=== PATIENT | male | born 1990 | race Asian ===

== ENCOUNTER 2022-05-31 20:01 | Emergency (ER) | payer SELFPAY ==
[~2022-05-31] VITALS: Ht 177.8 cm; Wt 81.2 kg
[2022-05-31 20:09] VITALS: BP_SYST 148
--- NOTE | 2022-05-31 20:20 | NUR ---
Patient triaged and placed in waiting room. VSS and patient appears in no acute distress at this time. Accompanied by MOTHER, awaiting available bed, and MD notified of need for MSE.
--- NOTE | 2022-05-31 23:30 | NUR ---
first contactwith pt. assessment completed. awaiting additional eval and orders.
[2022-05-31 23:35] LABS: BASOPHILS % (AUTO) 0.5 % (0.0-2.0); EOSINOPHILS # (AUTO) 0.3 K/uL (0.0-0.4); EOSINOPHILS % (AUTO) 3.6 % (0.0-4.0); HEMATOCRIT 32.2 % (36-54); HEMOGLOBIN 10.9 g/dL (14.0-18.0); LYMPHOCYTES % (AUTO) 42.5 % (20.5-51.5); MEAN CORPUSCULAR HEMOGLOBIN 27 pg (27-31); MEAN CORPUSCULAR HGB CONC 34 % (32-36); MEAN CORPUSCULAR VOLUME 79 fL (79.0-98.0); MONOCYTES # (AUTO) 0.6 K/uL (0.0-1.0); MONOCYTES % (AUTO) 6.1 % (1.7-9.3); NEUTROPHILS # (AUTO) 4.5 K/uL (1.8-7.7); NEUTROPHILS % (AUTO) 47.3 % (40.0-70.0); PLATELET COUNT (AUTO) 241 K/uL (130-430); RED CELL DISTRIBUTION WIDTH 14.9 % (9.0-15.0); WHITE BLOOD COUNT (AUTO) 9.5 K/uL (4.8-10.8)
[2022-05-31 23:52] LABS: CALCIUM 8.8 mg/dL (8.4-11.0); CREATININE 1.56 mg/dL (0.55-1.30)
[2022-05-31 23:56] LABS: ALBUMIN 2.4 g/dL (3.4-4.8); TOTAL BILIRUBIN 0.3 mg/dL (0.0-1.0)
[2022-06-01] MEDS ORDERED: DAPS25TA2 PO (00:03)
[2022-06-01] MEDS ORDERED: DIPH25CA83 PO (00:06)
[2022-06-01] MEDS ORDERED: CEPH-548 PO (00:06)
[2022-06-01] MEDS ORDERED: HYDR-3917 PO (00:18)
--- NOTE | 2022-06-01 02:30 | NUR ---
Patient given written and verbal discharge instructions and verbalizes understanding. ER MD LOYOLA discussed with patient the results and treatment provided. Patient in stable condition. ID arm band removed. Rx of given. Patient educated on pain management and to follow up with PMD. Pain Scale 0 . Opportunity for questions provided and answered. Medication side effect fact sheet provided.
[2022-06-01 03:43] VITALS: BP_SYST 138
== END 2022-06-01 01:52 | disposition home or self-care (01) ==
LOC: SED 20:01
DX: L13.0 Dermatitis herpetiformis (principal); R21 Rash and other nonspecific skin eruption; Z21 Asymptomatic human immunodeficiency virus [HIV] infection status; E10.65 Type 1 diabetes mellitus with hyperglycemia; R73.9 Hyperglycemia, unspecified; R50.9 Fever, unspecified; N18.9 Chronic kidney disease, unspecified; Z79.899 Other long term (current) drug therapy
CPT/HCPCS: 36415; 80053; 85025; 99283

== ENCOUNTER 2022-06-13 10:31 | Inpatient (IN) | payer MEDICAID ==
[~2022-06-13] VITALS: Ht 177.8 cm; Wt 88.5 kg
[~2022-06-13 10:31] MED LIST: CEPH-548 PO; DAPS25TA2 PO; DIPH25CA83 PO; HYDR-3917 PO
[2022-06-13 10:55] VITALS: BP_SYST 163
[2022-06-13 11:08] LABS: BASOPHILS # (AUTO) 0.1 K/uL (0.0-0.2); BASOPHILS % (AUTO) 0.6 % (0.0-2.0); EOSINOPHILS # (AUTO) 0.2 K/uL (0.0-0.4); EOSINOPHILS % (AUTO) 1.6 % (0.0-4.0); HEMATOCRIT 28.4 % (36-54); HEMOGLOBIN 9.3 g/dL (14.0-18.0); LYMPHOCYTES # (AUTO) 2.6 K/uL (1.0-5.5); LYMPHOCYTES % (AUTO) 23.1 % (20.5-51.5); MEAN CORPUSCULAR HEMOGLOBIN 27 pg (27-31); MEAN CORPUSCULAR HGB CONC 33 % (32-36); MEAN CORPUSCULAR VOLUME 81 fL (79.0-98.0); MONOCYTES # (AUTO) 0.6 K/uL (0.0-1.0); MONOCYTES % (AUTO) 5.6 % (1.7-9.3); NEUTROPHILS # (AUTO) 7.7 K/uL (1.8-7.7); NEUTROPHILS % (AUTO) 69.1 % (40.0-70.0); PLATELET COUNT (AUTO) 316 K/uL (130-430); RED BLOOD CELL COUNT(AUTO) 3.51 MIL/uL (4.2-6.2); RED CELL DISTRIBUTION WIDTH 15.6 % (9.0-15.0); WHITE BLOOD COUNT (AUTO) 11.1 K/uL (4.8-10.8)
[2022-06-13] MEDS ORDERED: FUROSEMIDE 40 MG/4 ML VIAL IVP ONE (11:30)
[2022-06-13 11:33] LABS: ALBUMIN 2.2 g/dL (3.4-4.8); CREATININE 2.59 mg/dL (0.55-1.30); TOTAL BILIRUBIN 0.2 mg/dL (0.0-1.0)
[2022-06-13] MEDS ORDERED: SODIUM BICARBONATE 8.4% JECT 50 MEQ/50 ML SYRINGE IVP ONE (12:00)
[2022-06-13] MEDS ORDERED: INSULIN REGULAR, HUMAN 10 UNITS/0.1 ML, 3 ML VIAL IVP ONE (12:00)
[2022-06-13] MEDS ORDERED: FUROSEMIDE 20 MG TABLET PO ONE (13:15)
[2022-06-13] MEDS ORDERED: SODIUM POLYSTYRENE SULFONATE 15 GM/60 ML UDBTL PO ONE (15:30)
[2022-06-13] MEDS ORDERED: NOR10 PO (16:38)
[2022-06-13] MEDS ORDERED: DIPH50CA38 PO (16:38)
[2022-06-13] MEDS ORDERED: DARU1TAB3 PO (16:38)
[2022-06-13] MEDS ORDERED: HYDR-3927 PO (16:38)
[2022-06-13] MEDS ORDERED: INSU100V9 SQ (16:38)
[2022-06-13] MEDS ORDERED: INSU100V SUBCUT (16:38)
[2022-06-13 18:49] VITALS: BP_SYST 139
[2022-06-13 23:00] VITALS: BP_SYST 153
[2022-06-13] MEDS ORDERED: VANCOMYCIN HCL 1 GM/NS PREMIX 250 ML IV ONE (23:30)
[2022-06-14] VITALS (22 sets, daily range): BP systolic 132–169
[2022-06-14] MEDS ORDERED: PIPERACILLIN/TAZO 3.375/DEX-IS 50 ML IV SCH
[2022-06-14] MEDS ORDERED: IPRATROPIUM/ALBUTEROL SULFATE 3 ML AMPUL.NEB (DUONEB) INH PRN (00:15)
[2022-06-14] MEDS ORDERED: PIPERACILLIN/TAZOBACTAM 3.375 GM/VIAL (ZOSYN) IV ONE (00:15)
[2022-06-14] MEDS ORDERED: VANCOMYCIN HCL 1000 MG/VIAL IV ONE (00:16)
[2022-06-14] MEDS: INSULIN REGULAR, HUMAN 100 UNITS/ML, 3 ML VIAL (humuLIN R) SUBCUT PRN ×2 (02:18→18:27)
[2022-06-14 05:24] LABS: BASOPHILS # (AUTO) 0.1 K/uL (0.0-0.2); BASOPHILS % (AUTO) 0.6 % (0.0-2.0); EOSINOPHILS # (AUTO) 0.3 K/uL (0.0-0.4); EOSINOPHILS % (AUTO) 2.5 % (0.0-4.0); HEMATOCRIT 26.4 % (36-54); HEMOGLOBIN 8.8 g/dL (14.0-18.0); LYMPHOCYTES % (AUTO) 29.2 % (20.5-51.5); MEAN CORPUSCULAR HEMOGLOBIN 27 pg (27-31); MEAN CORPUSCULAR HGB CONC 33 % (32-36); MEAN CORPUSCULAR VOLUME 80 fL (79.0-98.0); MONOCYTES # (AUTO) 0.8 K/uL (0.0-1.0); MONOCYTES % (AUTO) 8.1 % (1.7-9.3); NEUTROPHILS # (AUTO) 6.2 K/uL (1.8-7.7); NEUTROPHILS % (AUTO) 59.6 % (40.0-70.0); PLATELET COUNT (AUTO) 328 K/uL (130-430); RED BLOOD CELL COUNT(AUTO) 3.29 MIL/uL (4.2-6.2); RED CELL DISTRIBUTION WIDTH 15.7 % (9.0-15.0); WHITE BLOOD COUNT (AUTO) 10.3 K/uL (4.8-10.8)
[2022-06-14 05:49] LABS: ALBUMIN 1.9 g/dL (3.4-4.8); CALCIUM 7.6 mg/dL (8.4-11.0); CREATININE 1.7 mg/dL (0.55-1.30); PHOSPHORUS 3.6 mg/dL (2.7-4.5); TOTAL BILIRUBIN 0.2 mg/dL (0.0-1.0)
[2022-06-14] MEDS ORDERED: IPRATROPIUM/ALBUTEROL SULFATE 3 ML AMPUL.NEB (DUONEB) ONE (07:43)
[2022-06-14] MEDS ORDERED: FUROSEMIDE 40 MG/4 ML VIAL IVP ONE (09:00)
[2022-06-14] MEDS ORDERED: [UNRECOGNIZED DRUG - OTHER] PO SCH (09:00)
[2022-06-14] MEDS ORDERED: DAPSONE PO SCH (09:00)
[2022-06-14] MEDS ORDERED: AZITHROMYCIN 500 MG in NS 250 ML IV ONE (11:15)
[2022-06-14] MEDS: VANCOMYCIN HCL 1,000 MG in NS 250 ML IV SCH (13:11)
[2022-06-14] MEDS ORDERED: SULFAMETHOXAZOLE /TRIMETHOPRIM 30 ML in D5W 500 ML IV SCH (14:00)
[2022-06-14] MEDS: SULFAMETHOXAZOLE /TRIMETHOPRIM 10 ML in D5W 250 ML IV SCH ×2 (15:26→22:39)
[2022-06-14] MEDS: CEFEPIME 2 GM in D5W 100 ML IV SCH (21:51)
[2022-06-15] VITALS (24 sets, daily range): BP systolic 123–158
[2022-06-15] MEDS: INSULIN REGULAR, HUMAN 100 UNITS/ML, 3 ML VIAL (humuLIN R) SUBCUT PRN ×3 (00:12→18:45)
[2022-06-15] MEDS: VANCOMYCIN HCL 1,000 MG in NS 250 ML IV SCH ×2 (02:00→16:00)
[2022-06-15 03:53] LABS: BILIRUBIN,URINE NEGATIVE (NEGATIVE); BLOOD, URINE NEGATIVE (NEGATIVE); COLOR,URINE YELLOW (YELLOW); GLUCOSE,URINE 1+ (NEGATIVE); KETONES,URINE NEGATIVE (NEGATIVE); LEUKOCYTE ESTERASE ,URINE NEGATIVE (NEGATIVE); NITRITE, URINE NEGATIVE (NEGATIVE); PH,URINE 5.5 (5.0-8.0); PROTEIN URINE 2+ (NEGATIVE); UROBILINOGEN,URINE 0.2 (0.2-1.0)
[2022-06-15 04:02] LABS: CLARITY/URINE HAZY (CLEAR)
[2022-06-15 04:13] LABS: BACTERIA,URINE None Seen /HPF (None Seen); RBC,URINE 0-3 /HPF (0-3); WBC,URINE 0-3 /HPF (0-3)
[2022-06-15 05:01] LABS: BASOPHILS # (AUTO) 0.1 K/uL (0.0-0.2); BASOPHILS % (AUTO) 0.5 % (0.0-2.0); EOSINOPHILS # (AUTO) 0.3 K/uL (0.0-0.4); EOSINOPHILS % (AUTO) 2.6 % (0.0-4.0); HEMATOCRIT 27.1 % (36-54); LYMPHOCYTES # (AUTO) 3.3 K/uL (1.0-5.5); LYMPHOCYTES % (AUTO) 29.5 % (20.5-51.5); MEAN CORPUSCULAR HEMOGLOBIN 27 pg (27-31); MEAN CORPUSCULAR HGB CONC 33 % (32-36); MEAN CORPUSCULAR VOLUME 80 fL (79.0-98.0); MONOCYTES # (AUTO) 0.9 K/uL (0.0-1.0); MONOCYTES % (AUTO) 7.7 % (1.7-9.3); NEUTROPHILS # (AUTO) 6.7 K/uL (1.8-7.7); NEUTROPHILS % (AUTO) 59.7 % (40.0-70.0); PLATELET COUNT (AUTO) 345 K/uL (130-430); RED BLOOD CELL COUNT(AUTO) 3.38 MIL/uL (4.2-6.2); RED CELL DISTRIBUTION WIDTH 16.6 % (9.0-15.0); WHITE BLOOD COUNT (AUTO) 11.2 K/uL (4.8-10.8)
[2022-06-15 05:31] LABS: ALBUMIN 1.8 g/dL (3.4-4.8); CALCIUM 7.8 mg/dL (8.4-11.0); CREATININE 1.54 mg/dL (0.55-1.30); THYROID STIMULATING HORMONE 1.92 uIu/mL (0.34-4.82); TOTAL BILIRUBIN 0.3 mg/dL (0.0-1.0)
[2022-06-15] MEDS: SULFAMETHOXAZOLE /TRIMETHOPRIM 10 ML in D5W 250 ML IV SCH ×3 (06:53→21:51)
[2022-06-15] MEDS ORDERED: METHYLPREDNISOLONE SOD SUCC 40 MG/ML VIAL IVP ONE (08:30)
[2022-06-15] MEDS ORDERED: IPRATROPIUM BROM 0.5 MG/2.5 ML VIAL.NEB (ATROVENT) INH PRN (08:30)
[2022-06-15] MEDS ORDERED: ALBUTEROL SULFATE 0.083% 2.5 MG/3 ML VIAL.NEB INH PRN (08:30)
[2022-06-15] MEDS ORDERED: FUROSEMIDE 40 MG/4 ML VIAL IVP ONE (08:30)
[2022-06-15] MEDS: SYMTUZA PO SCH (09:00)
[2022-06-15] MEDS: CEFEPIME 2 GM in D5W 100 ML IV SCH ×2 (09:34→20:30)
[2022-06-15] MEDS: ALBUTEROL SULFATE 0.083% 2.5 MG/3 ML VIAL.NEB INH SCH ×2 (12:06→19:47)
[2022-06-15] MEDS: IPRATROPIUM BROM 0.5 MG/2.5 ML VIAL.NEB (ATROVENT) INH SCH ×2 (12:06→19:50)
[2022-06-15] MEDS: AZITHROMYCIN 250 MG in NS 250 ML IV SCH (12:25)
[2022-06-15] MEDS: methylPREDNISolone SOD SUCC/PF 62.5 MG/ML VIAL IVP SCH ×2 (12:25→17:40)
[2022-06-16] VITALS (23 sets, daily range): BP systolic 115–157
[2022-06-16] MEDS: methylPREDNISolone SOD SUCC/PF 62.5 MG/ML VIAL IVP SCH ×4 (00:04→17:59)
[2022-06-16] MEDS: INSULIN REGULAR, HUMAN 100 UNITS/ML, 3 ML VIAL (humuLIN R) SUBCUT PRN ×4 (00:08→18:22)
[2022-06-16] MEDS ORDERED: INSULIN REGULAR, HUMAN 100 UNITS/ML, 3 ML VIAL SUBCUT ONE (01:00)
[2022-06-16] MEDS: ALBUTEROL SULFATE 0.083% 2.5 MG/3 ML VIAL.NEB INH SCH ×4 (01:59→19:40)
[2022-06-16] MEDS: IPRATROPIUM BROM 0.5 MG/2.5 ML VIAL.NEB (ATROVENT) INH SCH ×4 (02:00→19:40)
[2022-06-16] MEDS: VANCOMYCIN HCL 1,000 MG in NS 250 ML IV SCH ×2 (04:36→12:47)
[2022-06-16] MEDS: SULFAMETHOXAZOLE /TRIMETHOPRIM 10 ML in D5W 250 ML IV SCH ×3 (06:41→21:20)
[2022-06-16 06:52] LABS: BASOPHILS % (AUTO) 0.2 % (0.0-2.0); HEMATOCRIT 24.9 % (36-54); HEMOGLOBIN 8.2 g/dL (14.0-18.0); LYMPHOCYTES # (AUTO) 0.9 K/uL (1.0-5.5); LYMPHOCYTES % (AUTO) 10.6 % (20.5-51.5); MEAN CORPUSCULAR HEMOGLOBIN 27 pg (27-31); MEAN CORPUSCULAR HGB CONC 33 % (32-36); MEAN CORPUSCULAR VOLUME 81 fL (79.0-98.0); MONOCYTES # (AUTO) 0.3 K/uL (0.0-1.0); MONOCYTES % (AUTO) 3.1 % (1.7-9.3); NEUTROPHILS # (AUTO) 7.2 K/uL (1.8-7.7); NEUTROPHILS % (AUTO) 86.1 % (40.0-70.0); PLATELET COUNT (AUTO) 325 K/uL (130-430); RED BLOOD CELL COUNT(AUTO) 3.08 MIL/uL (4.2-6.2); RED CELL DISTRIBUTION WIDTH 16.7 % (9.0-15.0); WHITE BLOOD COUNT (AUTO) 8.4 K/uL (4.8-10.8)
[2022-06-16 07:05] LABS: ALBUMIN 1.6 g/dL (3.4-4.8); CREATININE 2.02 mg/dL (0.55-1.30); TOTAL BILIRUBIN 0.3 mg/dL (0.0-1.0)
[2022-06-16] MEDS: CEFEPIME 2 GM in D5W 100 ML IV SCH ×2 (08:57→21:18)
[2022-06-16] MEDS ORDERED: INSULIN GLARGINE 100 UNITS/ML, 10 ML VIAL SUBCUT SCH (09:00)
[2022-06-16] MEDS: SYMTUZA PO SCH (09:00)
[2022-06-16] MEDS ORDERED: SYMTUZA PO ONE (12:00)
[2022-06-16] MEDS: AZITHROMYCIN 250 MG in NS 250 ML IV SCH (13:12)
[2022-06-16] MEDS ORDERED: MINERAL OIL 133 ML ENEMA RC ONE (16:00)
[2022-06-16] MEDS: NACL 0.9% 1,000 ML IV SCH (17:15)
[2022-06-16 18:06] LABS: MYCOPLASMA PNEUMONIAE IgM <770 U/mL (0-769)
[2022-06-16] MEDS: INSULIN GLARGINE 100 UNITS/ML, 10 ML VIAL SUBCUT SCH (21:14)
[2022-06-16] MEDS: DOCUSATE SODIUM 100 MG CAPSULE PO SCH (21:20)
[2022-06-17] VITALS (26 sets, daily range): BP systolic 99–152
[2022-06-17] MEDS: methylPREDNISolone SOD SUCC/PF 62.5 MG/ML VIAL IVP SCH ×4 (00:18→18:00)
[2022-06-17] MEDS: ALBUTEROL SULFATE 0.083% 2.5 MG/3 ML VIAL.NEB INH SCH ×4 (00:50→20:22)
[2022-06-17] MEDS: IPRATROPIUM BROM 0.5 MG/2.5 ML VIAL.NEB (ATROVENT) INH SCH ×4 (00:50→20:23)
[2022-06-17] MEDS: VANCOMYCIN HCL 750 MG in NS 250 ML IV SCH ×2 (01:35→14:00)
[2022-06-17] MEDS: SULFAMETHOXAZOLE /TRIMETHOPRIM 10 ML in D5W 250 ML IV SCH ×3 (05:49→21:50)
[2022-06-17] MEDS: INSULIN REGULAR, HUMAN 100 UNITS/ML, 3 ML VIAL (humuLIN R) SUBCUT PRN ×3 (05:52→17:57)
[2022-06-17 06:12] LABS: BASOPHILS % (AUTO) 0.2 % (0.0-2.0); HEMATOCRIT 24.3 % (36-54); HEMOGLOBIN 7.9 g/dL (14.0-18.0); LYMPHOCYTES # (AUTO) 0.8 K/uL (1.0-5.5); LYMPHOCYTES % (AUTO) 7.3 % (20.5-51.5); MEAN CORPUSCULAR HEMOGLOBIN 26 pg (27-31); MEAN CORPUSCULAR HGB CONC 32 % (32-36); MEAN CORPUSCULAR VOLUME 81 fL (79.0-98.0); MONOCYTES # (AUTO) 0.3 K/uL (0.0-1.0); MONOCYTES % (AUTO) 2.5 % (1.7-9.3); NEUTROPHILS # (AUTO) 9.6 K/uL (1.8-7.7); PLATELET COUNT (AUTO) 347 K/uL (130-430); RED BLOOD CELL COUNT(AUTO) 2.99 MIL/uL (4.2-6.2); RED CELL DISTRIBUTION WIDTH 16.4 % (9.0-15.0); WHITE BLOOD COUNT (AUTO) 10.6 K/uL (4.8-10.8)
[2022-06-17 06:28] LABS: CREATININE 2.11 mg/dL (0.55-1.30)
[2022-06-17] MEDS: INSULIN GLARGINE 100 UNITS/ML, 10 ML VIAL SUBCUT SCH ×2 (08:20→21:49)
[2022-06-17] MEDS: CEFEPIME 2 GM in D5W 100 ML IV SCH ×2 (08:21→21:51)
[2022-06-17] MEDS: DOCUSATE SODIUM 100 MG CAPSULE PO SCH ×2 (08:22→21:51)
[2022-06-17] MEDS: SYMTUZA PO SCH (08:23)
[2022-06-17] MEDS: NACL 0.9% 1,000 ML IV SCH (09:55)
[2022-06-17] MEDS ORDERED: LACTULOSE 20 GM/30 ML UDC PO ONE (11:30)
[2022-06-17] MEDS: AZITHROMYCIN 250 MG in NS 250 ML IV SCH (12:44)
[2022-06-17] MEDS ORDERED: methylPREDNISolone SOD SUCC/PF 62.5 MG/ML VIAL ONE (13:02)
[2022-06-17 14:07] LABS: HIV-1 RNA BY PCR 2820 copies/mL (.)
[2022-06-17] MEDS: LACTULOSE 20 GM/30 ML UDC PO SCH ×2 (15:40→21:50)
[2022-06-17 17:06] LABS: CRYPTOCOCCUS AG, SERUM Negative (Negative)
[2022-06-18] VITALS (20 sets, daily range): BP systolic 109–162
[2022-06-18] MEDS: methylPREDNISolone SOD SUCC/PF 62.5 MG/ML VIAL IVP SCH ×2 (00:58→06:33)
[2022-06-18] MEDS: INSULIN REGULAR, HUMAN 100 UNITS/ML, 3 ML VIAL (humuLIN R) SUBCUT PRN ×5 (01:00→22:10)
[2022-06-18] MEDS: ALBUTEROL SULFATE 0.083% 2.5 MG/3 ML VIAL.NEB INH SCH ×4 (01:17→19:36)
[2022-06-18] MEDS: IPRATROPIUM BROM 0.5 MG/2.5 ML VIAL.NEB (ATROVENT) INH SCH ×4 (01:17→19:37)
[2022-06-18] MEDS: VANCOMYCIN HCL 750 MG in NS 250 ML IV SCH ×2 (02:00→14:06)
[2022-06-18 05:32] LABS: BASOPHILS % (AUTO) 0.1 % (0.0-2.0); HEMOGLOBIN 8.1 g/dL (14.0-18.0); LYMPHOCYTES # (AUTO) 0.5 K/uL (1.0-5.5); LYMPHOCYTES % (AUTO) 6.2 % (20.5-51.5); MEAN CORPUSCULAR HEMOGLOBIN 27 pg (27-31); MEAN CORPUSCULAR HGB CONC 33 % (32-36); MEAN CORPUSCULAR VOLUME 82 fL (79.0-98.0); MONOCYTES # (AUTO) 0.3 K/uL (0.0-1.0); MONOCYTES % (AUTO) 3.5 % (1.7-9.3); NEUTROPHILS # (AUTO) 7.5 K/uL (1.8-7.7); NEUTROPHILS % (AUTO) 90.2 % (40.0-70.0); PLATELET COUNT (AUTO) 347 K/uL (130-430); RED BLOOD CELL COUNT(AUTO) 3.06 MIL/uL (4.2-6.2); RED CELL DISTRIBUTION WIDTH 16.3 % (9.0-15.0); WHITE BLOOD COUNT (AUTO) 8.3 K/uL (4.8-10.8)
[2022-06-18 06:11] LABS: CALCIUM 7.9 mg/dL (8.4-11.0); CREATININE 2.3 mg/dL (0.55-1.30)
[2022-06-18] MEDS: SULFAMETHOXAZOLE /TRIMETHOPRIM 10 ML in D5W 250 ML IV SCH ×3 (06:33→23:00)
[2022-06-18] MEDS: LACTULOSE 20 GM/30 ML UDC PO SCH ×5 (09:00→22:03)
[2022-06-18] MEDS ORDERED: INSULIN GLARGINE 100 UNITS/ML, 10 ML VIAL SUBCUT SCH (09:00)
[2022-06-18] MEDS: SYMTUZA PO SCH (09:10)
[2022-06-18] MEDS: DOCUSATE SODIUM 100 MG CAPSULE PO SCH ×2 (09:10→22:03)
[2022-06-18] MEDS: CEFEPIME 2 GM in D5W 100 ML IV SCH ×2 (09:10→21:17)
[2022-06-18] MEDS: METHYLPREDNISOLONE SOD SUCC 40 MG/ML VIAL IVP SCH ×2 (09:13→21:17)
[2022-06-18] MEDS: INSULIN GLARGINE 100 UNITS/ML, 10 ML VIAL SUBCUT SCH ×2 (09:15→22:08)
[2022-06-18] MEDS: NACL 0.9% 1,000 ML IV SCH ×2 (09:16→19:15)
[2022-06-18] MEDS: AZITHROMYCIN 250 MG in NS 250 ML IV SCH (11:36)
[2022-06-18 17:06] LABS: COCCIDIOIDES AB IGG 0.3 IV (<=0.9); COCCIDIOIDES AB IGM 0.7 IV (<=0.9)
[2022-06-18] MEDS ORDERED: SODIUM ZIRCONIUM CYCLOSILICATE 10 GM POWD.PACK PO ONE (18:00)
[2022-06-18] MEDS ORDERED: INSULIN REGULAR, HUMAN 100 UNITS/ML, 3 ML VIAL SUBCUT ONE (19:00)
[2022-06-19] VITALS: BP_SYST 155
[2022-06-19] MEDS: ALBUTEROL SULFATE 0.083% 2.5 MG/3 ML VIAL.NEB INH SCH ×4 (01:00→20:18)
[2022-06-19] MEDS: IPRATROPIUM BROM 0.5 MG/2.5 ML VIAL.NEB (ATROVENT) INH SCH ×4 (01:00→20:18)
[2022-06-19] MEDS: VANCOMYCIN HCL 750 MG in NS 250 ML IV SCH (02:00)
[2022-06-19] MEDS: INSULIN REGULAR, HUMAN 100 UNITS/ML, 3 ML VIAL (humuLIN R) SUBCUT PRN ×4 (05:41→21:26)
[2022-06-19] MEDS: SULFAMETHOXAZOLE /TRIMETHOPRIM 10 ML in D5W 250 ML IV SCH ×3 (06:15→23:43)
[2022-06-19 07:21] LABS: BASOPHILS % (AUTO) 0.1 % (0.0-2.0); HEMATOCRIT 26.5 % (36-54); HEMOGLOBIN 8.5 g/dL (14.0-18.0); LYMPHOCYTES # (AUTO) 0.9 K/uL (1.0-5.5); LYMPHOCYTES % (AUTO) 10.5 % (20.5-51.5); MEAN CORPUSCULAR HEMOGLOBIN 26 pg (27-31); MEAN CORPUSCULAR HGB CONC 32 % (32-36); MEAN CORPUSCULAR VOLUME 82 fL (79.0-98.0); MONOCYTES # (AUTO) 0.4 K/uL (0.0-1.0); MONOCYTES % (AUTO) 5.1 % (1.7-9.3); NEUTROPHILS % (AUTO) 84.3 % (40.0-70.0); PLATELET COUNT (AUTO) 369 K/uL (130-430); RED BLOOD CELL COUNT(AUTO) 3.24 MIL/uL (4.2-6.2); RED CELL DISTRIBUTION WIDTH 16.3 % (9.0-15.0); WHITE BLOOD COUNT (AUTO) 8.3 K/uL (4.8-10.8)
[2022-06-19 07:34] LABS: CALCIUM 8.2 mg/dL (8.4-11.0); CREATININE 2.23 mg/dL (0.55-1.30)
[2022-06-19] MEDS: LACTULOSE 20 GM/30 ML UDC PO SCH ×3 (08:30→20:52)
[2022-06-19] MEDS: DOCUSATE SODIUM 100 MG CAPSULE PO SCH ×2 (08:31→20:52)
[2022-06-19] MEDS: SYMTUZA PO SCH (08:31)
[2022-06-19] MEDS: METHYLPREDNISOLONE SOD SUCC 40 MG/ML VIAL IVP SCH ×2 (08:31→20:52)
[2022-06-19] MEDS: CEFEPIME 2 GM in D5W 100 ML IV SCH ×2 (08:32→20:53)
[2022-06-19 08:34] VITALS: BP_SYST 154
[2022-06-19] MEDS: INSULIN GLARGINE 100 UNITS/ML, 10 ML VIAL SUBCUT SCH ×2 (08:34→21:23)
[2022-06-19] MEDS: AZITHROMYCIN 250 MG in NS 250 ML IV SCH (13:50)
[2022-06-19 14:30] VITALS: BP_SYST 164
[2022-06-19 17:42] VITALS: BP_SYST 150
[2022-06-19] MEDS ORDERED: INSULIN REGULAR, HUMAN 100 UNITS/ML, 3 ML VIAL SUBCUT ONE ×2 (18:00→21:15)
[2022-06-19 20:50] VITALS: BP_SYST 151
[2022-06-20] VITALS (7 sets, daily range): BP systolic 127–161
[2022-06-20] MEDS: IPRATROPIUM BROM 0.5 MG/2.5 ML VIAL.NEB (ATROVENT) INH SCH ×4 (01:00→20:24)
[2022-06-20] MEDS: ALBUTEROL SULFATE 0.083% 2.5 MG/3 ML VIAL.NEB INH SCH ×4 (01:00→20:24)
[2022-06-20] MEDS: SULFAMETHOXAZOLE /TRIMETHOPRIM 10 ML in D5W 250 ML IV SCH ×3 (06:55→22:16)
[2022-06-20] MEDS: INSULIN REGULAR, HUMAN 100 UNITS/ML, 3 ML VIAL (humuLIN R) SUBCUT PRN ×2 (07:04→17:41)
[2022-06-20] MEDS: LACTULOSE 20 GM/30 ML UDC PO SCH ×3 (09:00→21:41)
[2022-06-20] MEDS: DOCUSATE SODIUM 100 MG CAPSULE PO SCH ×2 (09:19→21:42)
[2022-06-20] MEDS: CEFEPIME 2 GM in D5W 100 ML IV SCH ×2 (09:19→21:37)
[2022-06-20] MEDS: SYMTUZA PO SCH (09:20)
[2022-06-20] MEDS: predniSONE 20 MG TABLET PO SCH ×2 (09:25→21:42)
[2022-06-20] MEDS: INSULIN GLARGINE 100 UNITS/ML, 10 ML VIAL SUBCUT SCH ×2 (09:25→21:44)
[2022-06-21] VITALS: BP_SYST 126
[2022-06-21] MEDS: IPRATROPIUM BROM 0.5 MG/2.5 ML VIAL.NEB (ATROVENT) INH SCH ×4 (01:00→19:48)
[2022-06-21] MEDS: ALBUTEROL SULFATE 0.083% 2.5 MG/3 ML VIAL.NEB INH SCH ×4 (01:00→19:48)
[2022-06-21] MEDS: INSULIN REGULAR, HUMAN 100 UNITS/ML, 3 ML VIAL (humuLIN R) SUBCUT PRN ×4 (01:30→18:20)
[2022-06-21] MEDS: SULFAMETHOXAZOLE /TRIMETHOPRIM 10 ML in D5W 250 ML IV SCH (06:02)
[2022-06-21 07:06] LABS: BASOPHILS % (AUTO) 0.1 % (0.0-2.0); EOSINOPHILS % (AUTO) 0.2 % (0.0-4.0); HEMATOCRIT 28.5 % (36-54); HEMOGLOBIN 9.2 g/dL (14.0-18.0); LYMPHOCYTES # (AUTO) 1.5 K/uL (1.0-5.5); LYMPHOCYTES % (AUTO) 15.6 % (20.5-51.5); MEAN CORPUSCULAR HEMOGLOBIN 26 pg (27-31); MEAN CORPUSCULAR HGB CONC 32 % (32-36); MEAN CORPUSCULAR VOLUME 81 fL (79.0-98.0); MONOCYTES # (AUTO) 0.6 K/uL (0.0-1.0); MONOCYTES % (AUTO) 6.1 % (1.7-9.3); NEUTROPHILS # (AUTO) 7.6 K/uL (1.8-7.7); PLATELET COUNT (AUTO) 438 K/uL (130-430); RED BLOOD CELL COUNT(AUTO) 3.53 MIL/uL (4.2-6.2); RED CELL DISTRIBUTION WIDTH 16.4 % (9.0-15.0); WHITE BLOOD COUNT (AUTO) 9.8 K/uL (4.8-10.8)
[2022-06-21 07:36] LABS: CALCIUM 8.8 mg/dL (8.4-11.0); CREATININE 1.67 mg/dL (0.55-1.30); TOTAL BILIRUBIN 0.2 mg/dL (0.0-1.0)
[2022-06-21 08:14] VITALS: BP_SYST 154
[2022-06-21] MEDS ORDERED: SODIUM POLYSTYRENE SULFONATE 15 GM/60 ML UDBTL RC ONE (08:45)
[2022-06-21 10:00] VITALS: BP_SYST 154
[2022-06-21] MEDS: INSULIN GLARGINE 100 UNITS/ML, 10 ML VIAL SUBCUT SCH ×2 (10:04→21:30)
[2022-06-21] MEDS: CEFEPIME 2 GM in D5W 100 ML IV SCH (10:13)
[2022-06-21] MEDS: predniSONE 20 MG TABLET PO SCH ×2 (10:13→21:27)
[2022-06-21] MEDS: LACTULOSE 20 GM/30 ML UDC PO SCH ×3 (10:13→21:27)
[2022-06-21] MEDS: DOCUSATE SODIUM 100 MG CAPSULE PO SCH ×2 (10:13→21:28)
[2022-06-21] MEDS: SYMTUZA PO SCH (10:13)
[2022-06-21 12:49] VITALS: BP_SYST 140
[2022-06-21 16:48] VITALS: BP_SYST 138
[2022-06-21 20:30] VITALS: BP_SYST 137
[2022-06-22] VITALS: BP_SYST 130
[2022-06-22] MEDS: ALBUTEROL SULFATE 0.083% 2.5 MG/3 ML VIAL.NEB INH SCH ×2 (01:00→07:36)
[2022-06-22] MEDS: IPRATROPIUM BROM 0.5 MG/2.5 ML VIAL.NEB (ATROVENT) INH SCH ×2 (01:00→07:37)
[2022-06-22] MEDS: INSULIN REGULAR, HUMAN 100 UNITS/ML, 3 ML VIAL (humuLIN R) SUBCUT PRN ×2 (01:06→06:01)
[2022-06-22 06:46] LABS: CALCIUM 8.4 mg/dL (8.4-11.0); CREATININE 1.35 mg/dL (0.55-1.30)
[2022-06-22 08:50] VITALS: BP_SYST 141
[2022-06-22] MEDS: DOCUSATE SODIUM 100 MG CAPSULE PO SCH (09:13)
[2022-06-22] MEDS: LACTULOSE 20 GM/30 ML UDC PO SCH (09:13)
[2022-06-22] MEDS: predniSONE 20 MG TABLET PO SCH (09:13)
[2022-06-22] MEDS: INSULIN GLARGINE 100 UNITS/ML, 10 ML VIAL SUBCUT SCH (09:15)
[2022-06-22] MEDS: SYMTUZA PO SCH (09:17)
[2022-06-22] MEDS ORDERED: levoFLOXacin 500 MG TABLET PO SCH (10:00)
[2022-06-22 18:06] LABS: MYCOPLASMA PNEUMONIAE IgG 605 U/mL (0-99)
== END 2022-06-22 13:40 | disposition home or self-care (01) | DRG 133 ==
LOC: SED 10:31 → STU 13:07 → SIC 06-14 00:26 → STU 06-18 20:17
PROVIDERS: ADMIT Internal Medicine; ATTEND Internal Medicine
PROC: 5A0945A Assistance with Respiratory Ventilation, 24-96 Consecutive Hours, High Flow/Velocity Cannula (ICD-10-PCS; principal; 2022-06-14)
PROC: 5A09457 Assistance with Respiratory Ventilation, 24-96 Consecutive Hours, Continuous Positive Airway Pressure (ICD-10-PCS; 2022-06-14)
DX: J96.21 Acute and chronic respiratory failure with hypoxia (principal); N17.0 Acute kidney failure with tubular necrosis; E43 Unspecified severe protein-calorie malnutrition; I13.0 Hypertensive heart and chronic kidney disease with heart failure and stage 1 through stage 4 chronic kidney disease, or unspecified chronic kidney disease; J18.9 Pneumonia, unspecified organism; E87.1 Hypo-osmolality and hyponatremia; D63.1 Anemia in chronic kidney disease; I50.9 Heart failure, unspecified; E11.22 Type 2 diabetes mellitus with diabetic chronic kidney disease; Z21 Asymptomatic human immunodeficiency virus [HIV] infection status; N18.30 Chronic kidney disease, stage 3 unspecified; E87.5 Hyperkalemia; E78.5 Hyperlipidemia, unspecified; J45.909 Unspecified asthma, uncomplicated; Z20.822 Contact with and (suspected) exposure to COVID-19; Z68.28 Body mass index [BMI] 28.0-28.9, adult; K59.00 Constipation, unspecified; Z79.4 Long term (current) use of insulin; Z83.3 Family history of diabetes mellitus; Z87.891 Personal history of nicotine dependence; Z88.8 Allergy status to other drugs, medicaments and biological substances; Z79.899 Other long term (current) drug therapy
CPT/HCPCS: 36415; 36600; 71045; 74018; 80048; 80053; 80061; 80202; 81000; 82803; 82962; 83605; 83615; 83735; 83880; 83930; 83935; 84100; 84302; 84311; 84443; 84550; 85025; 86480; 86635; 86738; 87040; 87081; 87116; 87449; 87536; 87899; 93005; 93306; 94640; 94660; 94760; 96374; 96375; 99291; G0378; J0456; J0692; J1030; J1815; J1940; J2543; J2930; J3370; J3490; J7030; J7050; J7060; J7512; J7613

== ENCOUNTER 2022-12-06 16:07 | Emergency (ER) | payer MEDICAID ==
[~2022-12-06] VITALS: Ht 177.8 cm; Wt 72.1 kg
[~2022-12-06 16:07] MED LIST changes: -CEPH-548 PO; +DARU1TAB3 PO; +DIPH50CA38 PO; +HYDR-3927 PO; +INSU100V SUBCUT; +INSU100V9 SQ; +NOR10 PO
[2022-12-06 21:08] VITALS: BP_SYST 102; PULSE 92; RESP 16; TEMP 97.2; O2SAT 99
[2022-12-06] MEDS ORDERED: NACL 0.9% 1,000 ML IV ONE (22:15)
[2022-12-06] MEDS ORDERED: KETOROLAC TROMETHAMINE 30 MG VIAL IVP ONE (22:15)
[2022-12-06 23:00] LABS: BASOPHILS # (AUTO) 0.1 K/uL (0.0-0.2); BASOPHILS % (AUTO) 0.6 % (0.0-2.0); EOSINOPHILS # (AUTO) 0.2 K/uL (0.0-0.4); EOSINOPHILS % (AUTO) 1.4 % (0.0-4.0); HEMATOCRIT 34.5 % (36-54); HEMOGLOBIN 11.3 g/dL (14.0-18.0); LYMPHOCYTES # (AUTO) 4.4 K/uL (1.0-5.5); MEAN CORPUSCULAR HEMOGLOBIN 28 pg (27-31); MEAN CORPUSCULAR HGB CONC 33 % (32-36); MEAN CORPUSCULAR VOLUME 84 fL (79.0-98.0); MONOCYTES # (AUTO) 0.6 K/uL (0.0-1.0); MONOCYTES % (AUTO) 5.6 % (1.7-9.3); NEUTROPHILS # (AUTO) 6.1 K/uL (1.8-7.7); NEUTROPHILS % (AUTO) 53.4 % (40.0-70.0); PLATELET COUNT (AUTO) 392 K/uL (130-430); RED BLOOD CELL COUNT(AUTO) 4.11 MIL/uL (4.2-6.2); RED CELL DISTRIBUTION WIDTH 17.4 % (9.0-15.0); WHITE BLOOD COUNT (AUTO) 11.4 K/uL (4.8-10.8)
[2022-12-06 23:26] LABS: CALCIUM 9.2 mg/dL (8.4-11.0); CREATININE 2.2 mg/dL (0.55-1.30); POTASSIUM 4.7 mmol/L (3.5-5.1)
[2022-12-06 23:31] LABS: ALBUMIN 2.6 g/dL (3.4-4.8); TOTAL BILIRUBIN 0.1 mg/dL (0.0-1.0); TOTAL PROTEIN, SERUM 7.9 g/dL (6.4-8.3)
[2022-12-07 00:32] LABS: BILIRUBIN,URINE 1+ (NEGATIVE); CLARITY/URINE CLEAR (CLEAR); COLOR,URINE YELLOW (YELLOW); GLUCOSE,URINE TRACE (NEGATIVE); KETONES,URINE NEGATIVE (NEGATIVE); LEUKOCYTE ESTERASE ,URINE NEGATIVE (NEGATIVE); NITRITE, URINE NEGATIVE (NEGATIVE); PH,URINE 5.5 (5.0-8.0); PROTEIN URINE 3+ (NEGATIVE); UROBILINOGEN,URINE 0.2 (0.2-1.0)
[2022-12-07] MEDS ORDERED: ONDANSETRON HCL 4 MG/2 ML VIAL IVP ONE (00:45)
[2022-12-07] MEDS ORDERED: metroNIDAZOLE 500 mg/NS 100 ML IV ONE (00:45)
[2022-12-07] MEDS ORDERED: MORPHINE 4 MG INJ. 4 MG/ML VIAL IVP ONE (00:45)
[2022-12-07] MEDS ORDERED: METR-154 PO (00:57)
[2022-12-07 01:05] LABS: BLOOD, URINE NEGATIVE (NEGATIVE)
[2022-12-07 01:06] LABS: BACTERIA,URINE None Seen /HPF (None Seen); RBC,URINE 0-3 /HPF (0-3); WBC,URINE 0-3 /HPF (0-3)
[2022-12-07 01:15] VITALS: BP_SYST 116; PULSE 87; RESP 20; TEMP 97.7; O2SAT 100
== END 2022-12-07 01:05 | disposition home or self-care (01) ==
LOC: SED 16:07
DX: A09 Infectious gastroenteritis and colitis, unspecified (principal); B20 Human immunodeficiency virus [HIV] disease; R10.84 Generalized abdominal pain; E86.0 Dehydration; N17.9 Acute kidney failure, unspecified; I11.0 Hypertensive heart disease with heart failure; I50.9 Heart failure, unspecified; E11.9 Type 2 diabetes mellitus without complications; Z91.018 Allergy to other foods; Z79.4 Long term (current) use of insulin; Z87.19 Personal history of other diseases of the digestive system; Z79.899 Other long term (current) drug therapy
CPT/HCPCS: 99285; 74176; 96361; 96375 ×2; 80053; 81001; 85025; 87040; 36415; 76376; 83605; 81000; 96365; J1885; J7030; J3490; J2405; J2270